=== PATIENT | female | born 1945 | race American Indian/Alaskan Native ===

== ENCOUNTER 2016-08-24 07:03 | Day surgery (SDC) | payer MEDICARE, OTHER ==
[2016-05-04 15:09] VITALS: BMI 32.7
[2016-08-24] MEDS ORDERED: Sodium Chloride 0.9% 1,000 ML IV SCH (08:15)
[2016-08-24] MEDS ORDERED: Propofol 10 mg/ml Inj (20 ML) ONE (09:09)
[2016-08-24] MEDS ORDERED: Lidocaine 1% Inj (20ml) ONE (09:09)
[2016-08-24 10:21] VITALS: O2SAT 99
[2016-08-24 10:55] VITALS: BP 158/65; PULSE 69; RESP 18; TEMP 98.1
== END 2016-08-24 11:17 | disposition home or self-care (01) ==
LOC: ENDO 07:03
PROVIDERS: ATTEND Specialist
DX: K63.3 Ulcer of intestine (principal); K57.30 Diverticulosis of large intestine without perforation or abscess without bleeding; K64.8 Other hemorrhoids; I10 Essential (primary) hypertension; E78.5 Hyperlipidemia, unspecified
CPT/HCPCS: 45380; 45381; 88305; J2704; J7040 ×2

== ENCOUNTER 2018-06-28 06:52 | Outpatient (CLI) | payer MEDICARE, MEDICAID | END 2018-06-28 06:53 | disposition home or self-care (01) | LOC: RAD 06:52 ==